=== PATIENT | female | born 1990 | race Two or more races ===

== ENCOUNTER 2024-10-26 14:49 | Inpatient (IN) | payer OTHER ==
[~2024-10-26] VITALS: Ht 167.6 cm; Wt 73.0 kg
[2024-11-21] VITALS (9 sets, daily range): BP systolic 104–127; BP diastolic 55–83
[2024-11-21] MEDS ORDERED: PRENATAL TABLE1 EAC1 PO (04:57)
[2024-11-21] MEDS ORDERED: RINGERS SOLUTION,LACTATED 1,000 ML IV SCH (05:00)
[2024-11-21] MEDS ORDERED: AMPICILLIN SODIUM 2,000 MG VIAL IV ONE (05:00)
[2024-11-21 06:26] LABS: BASO % 0.6 % (0.1-1.2); EOS # 0.12 (0.04-0.54); EOS % 1.2 % (0.7-7.0); LYMPH # 1.74 (1.18-3.74); LYMPH % 17.0 % (19.3-53.1); MEAN PLATELET VOLUME 11.70 fl (9.4-12.4); MONO # 0.66 (0.24-0.82); MONO % 6.4 % (4.7-12.5); NEUT # 7.54 (1.56-6.13); NEUT % 73.5 % (34.0-71.1); RED CELL DISTRIBUTION WIDTH 13.5 % (11.6-14.4)
[2024-11-21 06:44] LABS: URINE BILIRRUBIN Negative (NEGATIVE); URINE BLOOD Trace; URINE COLOR Yellow; URINE GLUCOSE Negative (NEGATIVE); URINE KETONE Negative (NEGATIVE); URINE LEUKOCYTE Small; URINE NITRATE Negative; URINE PROTEIN Negative (NEGATIVE); URINE UROBILINOGEN 1.0 E.U./dl
[2024-11-21 06:48] LABS: URINE BACTERIA 2015.7 uL (0.0-1933); URINE EPITHELIAL CELLS 33.3 uL (0.0-38.8); URINE RBC 34.0 uL (0.0-20.8); URINE WBC 19.2 uL (0.0-23.2)
[2024-11-21 07:04] LABS: URINE CAST 0.87 uL (0.0-1.40)
[2024-11-21 07:06] LABS: ALT/SGPT 23.0 U/L (12-78); AST/SGOT 20.0 U/L (15-37); BILIRUBIN TOTAL 0.42 mg/dL (0.3-1.2); BUN CREA RATIO 18.0 (7.0-25.0); CREATININE SERUM 0.55 mg/dL (0.55-1.02); GFR 125.06; GLOBULINA 3.5 G/DL (2.4-3.5); GLUCOSE FASTING 73.0 mg/dL (65-100); OSMOLALITY SERUM 277.0 MOSM/KG (275-295); URINE APPEARANCE Clear
[2024-11-21 07:08] LABS: INR 0.94
[2024-11-21] MEDS ORDERED: OXYTOCIN 20 UNITS/500ML RL PIGGYBAG IV ONE (07:15)
[2024-11-21] MEDS ORDERED: OXYTOCIN 500 ML IV ONE (07:30)
[2024-11-21] MEDS ORDERED: OXYTOCIN 500 ML IV SCH (07:30)
[2024-11-21] MEDS ORDERED: AMPICILLIN SODIUM 1,000 MG VIAL IV SCH (09:00)
[2024-11-21] MEDS ORDERED: OXYTOCIN 20 UNITS/1000ML RL PIGGYBAG IV ONE (11:27)
[2024-11-21] MEDS ORDERED: ERYTHROMYCIN BASE OPHT 1GM EACH TUBE OP ONE (11:27)
[2024-11-21] MEDS ORDERED: LIDOCAINE HCL 1% 10ML VIAL ONE (11:27)
[2024-11-21] MEDS ORDERED: CHLORHEXIDINE GLUCONATE 120 ML BOTTLE TOP ONE (11:27)
[2024-11-21] MEDS ORDERED: CHLORHEXIDINE GLUCONATE 120 ML BOTTLE TOP SCH (14:00)
[2024-11-21] MEDS ORDERED: OXYTOCIN 1,000 ML IV SCH (14:00)
[2024-11-22] VITALS: BP 102/62
[2024-11-22 06:42] LABS: BASO % 0.4 % (0.1-1.2); EOS # 0.05 (0.04-0.54); EOS % 0.3 % (0.7-7.0); LYMPH # 1.35 (1.18-3.74); LYMPH % 8.9 % (19.3-53.1); MEAN PLATELET VOLUME 11.90 fl (9.4-12.4); MONO # 0.75 (0.24-0.82); MONO % 5.0 % (4.7-12.5); NEUT # 12.80 (1.56-6.13); NEUT % 84.6 % (34.0-71.1); RED CELL DISTRIBUTION WIDTH 13.5 % (11.6-14.4)
[2024-11-22 09:14] VITALS: BP 120/64
[2024-11-22 19:58] VITALS: BP 109/71
[2024-11-23] VITALS: BP 107/64
[2024-11-23 08:18] VITALS: BP 111/72
== END 2024-11-23 13:08 | disposition home or self-care (01) | DRG 807 ==
LOC: OB/GYN 11-12 13:30 → LDR 11-21 04:39 → OB/GYN 11-21 04:39 → LDR 11-21 05:02 → OB/GYN 11-21 14:37
PROVIDERS: ADMIT Obstetrics & Gynecology; ATTEND Obstetrics & Gynecology
PROC: 10E0XZZ Delivery of Products of Conception, External Approach (ICD-10-PCS; principal; 2024-11-21)
PROC: 0KQM0ZZ Repair Perineum Muscle, Open Approach (ICD-10-PCS; 2024-11-21)
PROC: 4A1HXCZ Monitoring of Products of Conception, Cardiac Rate, External Approach (ICD-10-PCS; 2024-11-21)
DX: O70.1 Second degree perineal laceration during delivery (principal); Z37.0 Single live birth; Z3A.41 41 weeks gestation of pregnancy

== ENCOUNTER 2024-11-09 11:47 | Outpatient (CLI) | payer OTHER | END 2024-11-09 12:57 | disposition home or self-care (01) | LOC: NST 11:47 | PROVIDERS: ATTEND Obstetrics & Gynecology Gynecology | DX: Z34.83 Encounter for supervision of other normal pregnancy, third trimester (principal) ==

== ENCOUNTER → 2024-11-13 | Outpatient (CLI) | payer OTHER ==
[~2024-11-13] MED LIST: PRENATAL TABLE1 EAC1 PO
== END | disposition home or self-care (01) ==
LOC: NST 13:54
PROVIDERS: ATTEND Obstetrics & Gynecology
DX: Z34.83 Encounter for supervision of other normal pregnancy, third trimester (principal)

== ENCOUNTER 2024-11-18 12:51 | Outpatient (CLI) | payer OTHER | END 2024-11-18 13:30 | disposition home or self-care (01) | LOC: NST 12:51 | PROVIDERS: ATTEND Obstetrics & Gynecology | DX: Z34.83 Encounter for supervision of other normal pregnancy, third trimester (principal) ==